=== PATIENT | male | born 1975 | race Caucasian/White ===

== ENCOUNTER 2018-06-29 10:47 | Observation (INO) | payer OTHER ==
[2018-06-29] MEDS ORDERED: Sodium Chloride 0.9% 1,000 ML IV STA (12:00)
[2018-06-29] MEDS ORDERED: Multivitamin (MVI) 10 ML, Thiamine 100 MG, Folic Acid 1 MG in Sodium Chloride 0.9% 1,00... IV STA (12:00)
[2018-06-29 12:12] LABS: BASO # 0.1 K/uL (0.0-0.2); BASO % 0.8 % (0.0-2.0); EOS # 0.1 K/uL (0.0-0.7); EOS % 1.3 % (0.0-4.0); HEMOGLOBIN 18.3 g/dL (12.0-18.0); LYMPH # 1.7 K/uL (1.0-4.3); LYMPH % 20.1 % (20.0-40.0); MEAN CELL VOLUME 95.3 fL (80.0-94.0); MEAN CORPUSCULAR HEMOGLOBIN 32.9 pg (27.0-31.0); MEAN CORPUSCULAR HGB CONC 34.5 g/dL (33.0-37.0); MEAN PLATELET VOLUME 8.2 fL (7.2-11.7); MONO # 0.7 K/uL (0.0-0.8); NEUT % 69.8 % (50.0-75.0); RBC 5.57 Mil/uL (4.40-5.90); RED CELL DISTRIBUTION WIDTH 14.7 % (11.5-14.5); WHITE BLOOD COUNT 8.6 K/uL (4.8-10.8)
[2018-06-29] MEDS ORDERED: Sodium Chloride 0.9% 1,000 ML ONE (12:13)
[2018-06-29 12:27] LABS: ALB/GLOB RATIO 1.5 (1.0-2.1); ALBUMIN 4.5 g/dL (3.5-5.0); ALT/SGPT 55 U/L (21-72); AST/SGOT 63 U/L (17-59); BLOOD UREA NITROGEN 11 mg/dL (9-20); GFR NON-AFRICAN AMERICAN > 60
--- NOTE | 2018-06-29 12:59 | RAD ---
HISTORY: Detox/Psy COMPARISON: None available. TECHNIQUE: Chest, one view. FINDINGS: Examination limited by habitus and hypoinflation. LUNGS: No focal consolidation. 3.9 cm mid lung rounded lucency may reflect artifact from confluence of shadows however bulla or less likely cavitation not excluded. Please note that chest x-ray has limited sensitivity for the detection of pulmonary masses. PLEURA: No significant pleural effusion identified. No definite pneumothorax . CARDIOVASCULAR: Heart size appears top normal. No significant atherosclerotic calcification present. OSSEOUS STRUCTURES: Degenerative changes. VISUALIZED UPPER ABDOMEN: Unremarkable. OTHER FINDINGS: None. IMPRESSION: 3.9 cm mid lung rounded lucency may reflect artifact from confluence of shadows however bulla or less likely cavitation not excluded. CT of the chest may be considered for further evaluation if indicated.
--- NOTE | 2018-06-29 13:34 | C.PDOC ---
History Of Present Illness Patient is a 42 year old male, with a PMHx of alcohol abuse, who presents to the ED c/o nausea, feeling hot and cold, dry mouth, headache, and shaking that began after he stopped drinking yesterday evening. Patient reports that he was in rehab for alcohol abuse and was fine for several years, but has recently had stress and was drinking for the past 6 days. He denies any CP, SOB, SI/HI, or hallucinations. Time Seen by Provider: 06/29/18 11:32 Chief Complaint (Nursing): Substance Abuse History Per: Patient History/Exam Limitations: no limitations Onset/Duration Of Symptoms: Days (1) Current Symptoms Are (Timing): Still Present Suicide/Self Injury Attempted (Context): None Associated Symptoms: denies: Suicidal Thoughts, Suicidal Plan Involuntary Hold By: None Recent travel outside of the [place]: No Additional History Per: Patient Past Medical History Reviewed: Historical Data, Nursing Documentation, Vital Signs Vital Signs: Last Vital Signs Temp 98.4 F 06/29/18 10:50 Pulse 114 H 06/29/18 12:10 Resp 17 06/29/18 12:10 BP 157/91 H 06/29/18 12:10 Pulse Ox 97 06/29/18 12:10 - Medical History PMH: No Chronic Diseases Surgical History: No Surg Hx Family History: States: No Known Family Hx - Social History Hx Alcohol Use: Yes Hx Substance Use: Yes - Immunization History Hx Tetanus Toxoid Vaccination: No Hx Influenza Vaccination: No Hx Pneumococcal Vaccination: No Review Of Systems Except As Marked, All Systems Reviewed And Found Negative. Constitutional: Positive for: Chills, Other (tremors) ENT: Positive for: Other (dry mouth) Cardiovascular: Negative for: Chest Pain Respiratory: Negative for: Shortness of Breath Gastrointestinal: Positive for: Nausea Neurological: Positive for: Headache Psych: Negative for: Suicidal ideation, Other (homicidal ideation, hallucinat ions) Physical Exam - Physical Exam Appears: Non-toxic, Other (tremors) Skin: Normal Color, Warm, Dry Head: Atraumatic, Normacephalic Eye(s): bilateral: Normal Inspection Oral Mucosa: Moist Neck: Normal ROM, Supple Chest: Symmetrical, No Deformity Cardiovascular: Rhythm Irregular (tachycardic) Respiratory: Normal Breath Sounds, No Rales, No Rhonchi, No Wheezing Gastrointestinal/Abdominal: Soft, No Tenderness Neurological/Psych: Oriented x3, Normal Speech, Normal Cognition ED Course And Treatment - Laboratory Results Result Diagrams: 06/29/18 12:09 06/29/18 12:09 Lab Results: Total Bilirubin 0.6 mg/dL (0.2-1.3) 06/29/18 12:09 AST 63 U/L (17-59) H 06/29/18 12:09 ALT 55 U/L (21-72) 06/29/18 12:09 Alkaline Phosphatase 115 U/L (38-126) 06/29/18 12:09 Total Protein 7.6 g/dL (6.3-8.3) 06/29/18 12:09 Albumin 4.5 g/dL (3.5-5.0) 06/29/18 12:09 Globulin 3.1 gm/dL (2.2-3.9) 06/29/18 12:09 Albumin/Globulin Ratio 1.5 (1.0-2.1) 06/29/18 12:09 O2 Sat by Pulse Oximetry: 97 (on RA) Pulse Ox Interpretation: Normal - CT Scan/US CT Chest Other Rad Studies (CT/US): Read By Radiologist, Radiology Report Reviewed CT/US Interpretation: HISTORY: Detox/Psy. COMPARISON: None available. TECHNIQUE: Chest, one view. FINDINGS: Examination limited by habitus and hypoinflation. LUNGS: No focal consolidation. 3.9 cm mid lung rounded lucency may reflect artifact from confluence of shadows however bulla or less likely cavitation not excluded. Please note that chest x-ray has limited sensitivity for the detection of pulmonary masses. PLEURA: No significant pleural effusion identified. No definite pneumothorax . CARDIOVASCULAR: Heart size appears top normal. No significant atherosclerotic calcification present. OSSEOUS STRUCTURES: Degenerative changes. VISUALIZED UPPER ABDOMEN: Unremarkable. OTHER FINDINGS: None. IMPRESSION: 3.9 cm mid lung rounded lucency may reflect artifact from confluence of shadows however bulla or less likely cavitation not excluded. CT of the chest may be considered for further evaluation if indicated. Progress Note: Plan: Labs. CT Chest. O2 Nasal Cannula. Ativan 1mg IVP. Libirum 50mg PO. Protonix 40mg PO. IV Fluids. Banana Bag. Spoke with Crisis Department, no detox beds were available. On reevaluation, patient felt better but was still tachycardic and had tremors. Spoke to Dr. Elida Hightower who accepted patient for observation of alcohol withdrawal. Disposition - Disposition Disposition: HOSPITALIZED Disposition Time: 13:34 Condition: FAIR - Clinical Impression Clinical Impression: Alcohol withdrawal - PA / TIRE CURER / Resident Statement MD/DO has examined the patient and agrees with the treatment plan. - Scribe Statement The provider has reviewed the documentation as recorded by the Justina Barreto All medical record entries made by the Pinedaiblemuel were at my direction and personally dictated by me. I have reviewed the chart and agree that the record accurately reflects my personal performance of the history, physical exam, medical decision making, and the department course for this patient. I have also personally directed, reviewed, and agree with the discharge instructions and disposition. Decision To Admit - Pt Status Changed To: Hospital Disposition Of: Observation - . Bed Request Type: Telemetry Admitting Physician: Debra Hightower Patient Diagnosis: Alcohol withdrawal
[2018-06-29 14:41] LABS: URINE BILIRUBIN NEGATIVE (NEGATIVE); URINE CLARITY Clear (Clear); URINE COLOR YELLOW (YELLOW); URINE GLUCOSE (UA) NEGATIVE (Normal)
[2018-06-29 14:42] LABS: URINE BLOOD NEGATIVE (NEGATIVE); URINE LEUKOCYTE ESTERASE NEGATIVE Leu/uL (Negative); URINE PROTEIN NEGATIVE (NEGATIVE); URINE UROBILINOGEN 0.2 mg/dL (0.2-1.0)
[2018-06-29 14:43] LABS: BARBITURATES, UR NEGATIVE (NEGATIVE); BENZODIAZEPINES, UR NEGATIVE (NEGATIVE); OPIATES, UR NEGATIVE (NEGATIVE); PHENCYCLIDINE, UR NEGATIVE (NEGATIVE)
--- NOTE | 2018-06-29 14:44 | CT ---
Date of service: 06/29/2018 CT chest without IV contrast Indication: abnormal CXR Technique: Contiguous axial images were obtained through the chest without intravenous contrast enhancement. Sagittal and coronal reconstructions were generated and reviewed. This CT exam was performed using 1 or more of the following dose reduction techniques: Automated exposure control, adjustment of the MAA and/or kV according to patient size, and/or use of iterative reconstruction technique. Radiation dose (DLP): 667.8 MGy-cm. Comparison: Chest xray performed 06/29/18 Findings: Visualized portions of the inferior thyroid gland appear unremarkable. The mediastinal and hilar vascular structures appear within normal limits. The heart appears within normal limits of size. No focal consolidation. No pleural effusion. No pneumothorax. No suspicious pulmonary nodules measuring greater than 5 mm. Limited visualization of the noncontrast upper abdomen: Hypoattenuation of the liver compatible with hepatic steatosis. No acute osseous abnormality is detected. Impression: No acute pulmonary pathology identified. The rounded lucency demonstrated on chest x-ray performed the same day is not evident on the current examination and presumed secondary to artifact. Incidental findings as above.
[2018-06-29 18:24] VITALS: RESP 20
--- NOTE | 2018-06-29 18:28 | CP.PCM.PN ---
Subjective - Date & Time of Evaluation Date of Evaluation: 06/29/18 Objective - Vital Signs/Intake and Output Vital Signs (last 24 hours): Temp Pulse Resp BP Pulse Ox 99.2 F 108 H 20 153/87 H 97 06/29/18 15:05 06/29/18 15:05 06/29/18 15:05 06/29/18 15:05 06/29/18 17:33 - Medications Medications: Current Medications Chlordiazepoxide (Librium) 25 mg PO Q8 PRN PRN Reason: Agitation Folic Acid 1 mg/ Thiamine HCl 100 mg/ Multivitamins/Vitamin C 10 ml/ Dextrose 1,011.2 mls @ 75 mls/hr IV Q24H [facility] Pantoprazole Sodium (Protonix Ec Tab) 40 mg PO DAILY [facility] - Labs Labs: 06/29/18 12:09 06/29/18 12:09 - Constitutional Appears: Well - Head Exam Head Exam: ATRAUMATIC, NORMAL INSPECTION, NORMOCEPHALIC - Eye Exam Eye Exam: EOMI, Normal appearance, PERRL Pupil Exam: NORMAL ACCOMODATION, PERRL - ENT Exam ENT Exam: Mucous Membranes Moist, Normal Exam - Neck Exam Neck Exam: Full ROM, Normal Inspection. absent: Lymphadenopathy - Respiratory Exam Respiratory Exam: Decreased Breath Sounds - Cardiovascular Exam Cardiovascular Exam: REGULAR RHYTHM, +S1, +S2 - GI/Abdominal Exam GI & Abdominal Exam: Soft, Diminished Bowel Sounds - Rectal Exam Rectal Exam: Deferred Assessment and Plan - Assessment and Plan (Free Text) Plan: medications reviewed vitals reviewed labs reviewed
--- NOTE | 2018-06-29 18:29 | CP.PCM.HP ---
History of Present Illness - History of Present Illness History of Present Illness: 42 yo M with no known chronic diseases and PMH of ETOH and substance abuse (cocaine) presents to ED for detox s/p drinking for 6 continuous days. Pt presented with c/o nausea, headache, dry mouth, tremors, and feeling of temperature change hot/cold of onset day of arrival to ED. Pt reports last drink was evening [employer]. Pt admits to being in rehab for ETOH abuse and was successful in stopping drinking for several years with recent relapse due to stress. Pt at present still c/o chills, tremors, and headache. Pt denies fever, chest pain, cough, sob, n/v/d, abdominal pain, dysuria, paresthesias. Pt denies any SI/HI ideations. On presentation, pt tachycardic 114 bpm Past Patient History - Past Social History Smoking Status: Heavy Smoker > 10 Cigarettes Daily - PSYCHIATRIC Hx Substance Use: Yes - SURGICAL HISTORY Other/Comment: LYMPH NODE BIOPSY - ANESTHESIA Hx Anesthesia: Yes Hx Anesthesia Reactions: No Meds Allergies/Adverse Reactions: Allergies Allergy/AdvReac Type Severity Reaction Status Date / Time erythromycin base Allergy Verified 06/29/18 10:50 Physical Exam - Constitutional Appears: Well - Head Exam Head Exam: ATRAUMATIC, NORMAL INSPECTION, NORMOCEPHALIC - Eye Exam Eye Exam: EOMI, Normal appearance, PERRL Pupil Exam: NORMAL ACCOMODATION, PERRL - ENT Exam ENT Exam: Mucous Membranes Moist, Normal Exam - Neck Exam Neck exam: Positive for: Normal Inspection - Respiratory Exam Respiratory Exam: Decreased Breath Sounds - Cardiovascular Exam Cardiovascular Exam: REGULAR RHYTHM, +S1, +S2 - GI/Abdominal Exam GI & Abdominal Exam: Diminished Bowel Sounds, Soft - Rectal Exam Rectal Exam: Deferred Results - Vital Signs Recent Vital Signs: Last Vital Signs Temp 99.2 F 06/29/18 15:05 Pulse 108 H 06/29/18 15:05 Resp 20 06/29/18 15:05 BP 153/87 H 06/29/18 15:05 Pulse Ox 97 06/29/18 17:33 - Labs Result Diagrams: 06/29/18 12:09 06/29/18 12:09 Labs: Laboratory Results - last 24 hr 06/29/18 06/29/18 06/29/18 12:09 12:09 14:13 WBC 8.6 RBC 5.57 Hgb 18.3 H Hct 53.1 H MCV 95.3 H MCH 32.9 H MCHC 34.5 RDW 14.7 H Plt Count 237 MPV 8.2 Neut % (Auto) 69.8 Lymph % (Auto) 20.1 [place] % (Auto) 8.0 Eos % (Auto) 1.3 Baso % (Auto) 0.8 Neut # (Auto) 6.0 Lymph # (Auto) 1.7 [place] # (Auto) 0.7 Eos # (Auto) 0.1 Baso # (Auto) 0.1 Sodium 139 Potassium 4.2 Chloride 102 Carbon Dioxide 26 Anion Gap 15 BUN 11 Creatinine 0.9 Est GFR ( Amer) > 60 Est GFR (Non-Af Amer) > 60 Random Glucose 115 H Calcium 9.0 Phosphorus 2.1 L Magnesium 1.8 Total Bilirubin 0.6 AST 63 H ALT 55 Alkaline Phosphatase 115 Total Protein 7.6 Albumin 4.5 Globulin 3.1 Albumin/Globulin Ratio 1.5 Urine Color Yellow Urine Clarity Clear Urine pH 7.0 Ur Specific [place] 1.015 Urine Protein Negative Urine Glucose (UA) Negative Urine Ketones 15 Urine Blood Negative Urine Nitrate Negative Urine Bilirubin Negative Urine Urobilinogen 0.2 Ur Leukocyte Esterase Negative Urine WBC (Auto) 2 Urine RBC (Auto) 1 Urine Opiates Screen Urine Methadone Screen Ur Barbiturates Screen Ur Phencyclidine Scrn Ur Amphetamines Screen U Benzodiazepines Scrn U Oth Cocaine Metabols U Cannabinoids Screen Alcohol, Quantitative 88 H 06/29/18 14:13 WBC RBC Hgb Hct MCV MCH MCHC RDW Plt Count MPV Neut % (Auto) Lymph % (Auto) [place] % (Auto) Eos % (Auto) Baso % (Auto) Neut # (Auto) Lymph # (Auto) [place] # (Auto) Eos # (Auto) Baso # (Auto) Sodium Potassium Chloride Carbon Dioxide Anion Gap BUN Creatinine Est GFR ( Amer) Est GFR (Non-Af Amer) Random Glucose Calcium Phosphorus Magnesium Total Bilirubin AST ALT Alkaline Phosphatase Total Protein Albumin Globulin Albumin/Globulin Ratio Urine Color Urine Clarity Urine pH Ur Specific [place] Urine Protein Urine Glucose (UA) Urine Ketones Urine Blood Urine Nitrate Urine Bilirubin Urine Urobilinogen Ur Leukocyte Esterase Urine WBC (Auto) Urine RBC (Auto) Urine Opiates Screen Negative Urine Methadone Screen Negative Ur Barbiturates Screen Negative Ur Phencyclidine Scrn Negative Ur Amphetamines Screen Negative U Benzodiazepines Scrn Negative U Oth Cocaine Metabols Positive H U Cannabinoids Screen Negative Alcohol, Quantitative Assessment & Plan - Assessment and Plan (Free Text) Plan: Ativan prn Librium 50 mg IVF / Banana Bag PO Protonix monitor for s/s ETOh withdrawal o2 NC support prn AM labs CT Chest
[2018-06-29] MEDS: Dextrose 5%/0.45% NS 1,000 ML IV SCH (22:45)
[2018-06-30] MEDS: Pantoprazole 40 mg EC Tab PO SCH (09:53)
[2018-06-30] MEDS: Enoxaparin 40 mg Syringe SC SCH (09:53)
--- NOTE | 2018-06-30 10:18 | CP.PCM.PN ---
Subjective - Date & Time of Evaluation Date of Evaluation: 06/30/18 Time of Evaluation: 10:18 - Subjective Subjective: Medicine Progress Note - Dr Kaylene Hightower's service Patient seen and examined at bedside. Per nursing no acute events overnight. 42 year old male with a past medical history of etoh abuse and cocaine abuse comes in after reporting falling off the wagon and drinking for six days straight. Patient completed rehab in the past, however recent changes in his personal life caused further stress that caused him to relapse. At this time the patient states he has it under control and doesn't need rehab. Patient denies any fevers, headaches, chills, nausea, vomiting, abdominal pain, syncopal episodes, or any other complaints. Medical history:Denies Surgical history:Denies Allergies: erythromycin base Social history: Daily alcohol user. Previously was sober after completing rehab. Occaisional cocaine use Objective - Vital Signs/Intake and Output Vital Signs (last 24 hours): Temp Pulse Resp BP Pulse Ox 97.4 F L 78 20 137/78 98 06/29/18 23:32 06/30/18 07:07 06/29/18 23:32 06/29/18 23:32 06/30/18 08:07 Intake and Output: 06/30/18 06/30/18 06:59 18:59 Intake Total 1230 Balance 1230 - Medications Medications: Current Medications Chlordiazepoxide (Librium) 25 mg PO Q8 PRN PRN Reason: Agitation Last Admin: 06/30/18 04:27 Dose: 25 mg Enoxaparin Sodium (Lovenox) 40 mg SC DAILY [facility] Last Admin: 06/30/18 09:53 Dose: 40 mg Folic Acid 1 mg/ Thiamine HCl 100 mg/ Multivitamins/Vitamin C 10 ml/ Dextrose 1,011.2 mls @ 75 mls/hr IV Q24H [facility] Dextrose/Sodium Chloride (Dextrose 5%/0.45% Ns 1000 Ml) 1,000 mls @ 75 mls/hr IV .[id number] [facility] Last Admin: 06/29/18 22:45 Dose: 75 mls/hr Pantoprazole Sodium (Protonix Ec Tab) 40 mg PO DAILY [facility] Last Admin: 06/30/18 09:53 Dose: 40 mg - Labs Labs: 06/29/18 12:09 06/29/18 12:09 - Head Exam Head Exam: ATRAUMATIC, NORMAL INSPECTION - Eye Exam Eye Exam: EOMI, Normal appearance, PERRL Pupil Exam: NORMAL ACCOMODATION, PERRL. absent: Irregular, Unequal - ENT Exam ENT Exam: Mucous Membranes Moist, Normal Oropharynx - Respiratory Exam Respiratory Exam: Clear to Ausculation Bilateral, NORMAL BREATHING PATTERN. absent: Prolonged Expiratory Phase, Respiratory Distress - Cardiovascular Exam Cardiovascular Exam: REGULAR RHYTHM, +S1, +S2 - GI/Abdominal Exam GI & Abdominal Exam: Soft, Normal Bowel Sounds. absent: Rigid, Hyperactive Bowel Sounds - Extremities Exam Extremities Exam: Full ROM, Normal Inspection. absent: Joint Swelling, Pedal Edema - Back Exam Back Exam: NORMAL INSPECTION. absent: CVA tenderness (R), paraspinal tenderness - Neurological Exam Neurological Exam: Alert, Awake, CN II-XII Intact, Oriented x3 - Psychiatric Exam Psychiatric exam: Normal Affect, Normal Mood. absent: Depressed - Skin Skin Exam: Dry, Intact, Normal Color Assessment and Plan - Assessment and Plan (Free Text) Assessment: 42 year old male admitted to the hospital for alcohol abuse. Plan: Etoh withdrawal [place]: 88 on admission Banana bag given. [facility] protocols Fall protocols Seizure protocols. Psychiatry consulted--> Help appreciated Medications: Librium 25mg PO Q8 PRN Dextrose 5%/.5%NS @75mls/hr Folic acid 1mg IV Q24 Cocaine abuse -UDS positive for coacaine on admission -Avoid beta blockers in patient Tobacco use -Nicoderm patch PPX -Lovenox -Protonix Dispo: Patient likely to be discharged tomorow. Plan discussed with Attending Dr. Elida Hightower. Andrey Stringer, PGY-2
[2018-06-30] MEDS: Dextrose 5%/0.45% NS 1,000 ML IV SCH (12:23)
[2018-06-30] MEDS ORDERED: Folic Acid 1 MG, Thiamine 100 MG, Multivitamin (MVI) 10 ML in Dextrose 5% In Water 1,00... IV SCH (16:00)
--- NOTE | 2018-06-30 18:12 | CP.PCM.PN ---
Subjective - Date & Time of Evaluation Date of Evaluation: 06/30/18 - Subjective Subjective: patient seen and examined at bedside no acute overnight events reported states feeling much better today no c/o n/v/d, abdominal pain, sob, chest pain Patient seen and examined at bedside. Per nursing no acute events overnight. 42 year old male with a past medical history of etoh abuse and cocaine abuse comes in after reporting falling off the wagon and drinking for six days straight. Patient completed rehab in the past, however recent changes in his personal life caused further stress that caused him to relapse. At this time the patient states he has it under control and doesn't need rehab. Patient denies any fevers, headaches, chills, nausea, vomiting, abdominal pain, syncopal episodes, or any other complaints. Medical history:Denies Surgical history:Denies Allergies: erythromycin base Social history: Daily alcohol user. Previously was sober after completing rehab. Occaisional cocaine use Objective - Vital Signs/Intake and Output Vital Signs (last 24 hours): Temp Pulse Resp BP Pulse Ox 97.4 F L 84 20 137/78 98 06/29/18 23:32 06/30/18 13:53 06/29/18 23:32 06/29/18 23:32 06/30/18 12:12 Intake and Output: 06/30/18 06/30/18 06:59 18:59 Intake Total 1230 Balance 1230 - Medications Medications: Current Medications Chlordiazepoxide (Librium) 25 mg PO Q8 PRN PRN Reason: Agitation Last Admin: 06/30/18 13:51 Dose: 25 mg Enoxaparin Sodium (Lovenox) 40 mg SC DAILY [facility] Last Admin: 06/30/18 09:53 Dose: 40 mg Folic Acid 1 mg/ Thiamine HCl 100 mg/ Multivitamins/Vitamin C 10 ml/ Dextrose 1,011.2 mls @ 75 mls/hr IV Q24H [facility] Last Admin: 06/30/18 16:51 Dose: 75 mls/hr Dextrose/Sodium Chloride (Dextrose 5%/0.45% Ns 1000 Ml) 1,000 mls @ 75 mls/hr IV .[id number] [facility] Last Admin: 06/30/18 12:23 Dose: 75 mls/hr Nicotine (Nicoderm Cq) 1 patch TD DAILY [facility] Last Admin: 06/30/18 16:45 Dose: 1 patch Pantoprazole Sodium (Protonix Ec Tab) 40 mg PO DAILY [facility] Last Admin: 06/30/18 09:53 Dose: 40 mg - Labs Labs: 06/29/18 12:09 06/29/18 12:09 - Constitutional Appears: Well - Head Exam Head Exam: ATRAUMATIC, NORMAL INSPECTION, NORMOCEPHALIC - Eye Exam Eye Exam: EOMI, Normal appearance, PERRL Pupil Exam: NORMAL ACCOMODATION, PERRL - ENT Exam ENT Exam: Mucous Membranes Moist, Normal Exam - Neck Exam Neck Exam: Full ROM, Normal Inspection. absent: Lymphadenopathy - Respiratory Exam Respiratory Exam: Decreased Breath Sounds - Cardiovascular Exam Cardiovascular Exam: REGULAR RHYTHM, +S1, +S2 - GI/Abdominal Exam GI & Abdominal Exam: Soft, Diminished Bowel Sounds - Rectal Exam Rectal Exam: Deferred - Neurological Exam Neurological Exam: Oriented x3 Assessment and Plan - Assessment and Plan (Free Text) Plan: Dextrose 5% Folic acid 1 mgthiamine HCL 100 mg Librium Lovenox NicoDerm CQ Protonix ec tab Medications reviewed Labs reviewed Vitals reviewed
[2018-07-01] MEDS: Dextrose 5%/0.45% NS 1,000 ML IV SCH (01:25)
[2018-07-01 01:31] VITALS: TEMP 98.1
[2018-07-01 08:17] VITALS: PULSE 89
[2018-07-01 08:37] VITALS: BP 115/78; O2SAT 97
[2018-07-01] MEDS: Pantoprazole 40 mg EC Tab PO SCH (09:33)
[2018-07-01] MEDS: Enoxaparin 40 mg Syringe SC SCH (09:35)
--- NOTE | 2018-07-01 18:52 | CP.PCM.DIS ---
Provider - Provider Date of Admission: 06/29/18 13:32 Attending physician: Jose Luis Hightower MD Time Spent in preparation of Discharge (in minutes): 15 Hospital Course - Lab Results Lab Results: Most Recent Lab Values WBC 8.6 K/uL (4.8-10.8) 06/29/18 12:09 RBC 5.57 Mil/uL (4.40-5.90) 06/29/18 12:09 Hgb 18.3 g/dL (12.0-18.0) H 06/29/18 12:09 Hct 53.1 % (35.0-51.0) H 06/29/18 12:09 MCV 95.3 fL (80.0-94.0) H 06/29/18 12:09 MCH 32.9 pg (27.0-31.0) H 06/29/18 12:09 MCHC 34.5 g/dL (33.0-37.0) 06/29/18 12:09 RDW 14.7 % (11.5-14.5) H 06/29/18 12:09 Plt Count 237 K/uL (130-400) 06/29/18 12:09 MPV 8.2 fL (7.2-11.7) 06/29/18 12:09 Neut % (Auto) 69.8 % (50.0-75.0) 06/29/18 12:09 Lymph % (Auto) 20.1 % (20.0-40.0) 06/29/18 12:09 [place] % (Auto) 8.0 % (0.0-10.0) 06/29/18 12:09 Eos % (Auto) 1.3 % (0.0-4.0) 06/29/18 12:09 Baso % (Auto) 0.8 % (0.0-2.0) 06/29/18 12:09 Neut # (Auto) 6.0 K/uL (1.8-7.0) 06/29/18 12:09 Lymph # (Auto) 1.7 K/uL (1.0-4.3) 06/29/18 12:09 [place] # (Auto) 0.7 K/uL (0.0-0.8) 06/29/18 12:09 Eos # (Auto) 0.1 K/uL (0.0-0.7) 06/29/18 12:09 Baso # (Auto) 0.1 K/uL (0.0-0.2) 06/29/18 12:09 Sodium 139 mmol/L (132-148) 06/29/18 12:09 Potassium 4.2 mmol/L (3.6-5.2) 06/29/18 12:09 Chloride 102 mmol/L (98-107) 06/29/18 12:09 Carbon Dioxide 26 mmol/L (22-30) 06/29/18 12:09 Anion Gap 15 (10-20) 06/29/18 12:09 BUN 11 mg/dL (9-20) 06/29/18 12:09 Creatinine 0.9 mg/dL (0.8-1.5) 06/29/18 12:09 Est GFR ( Amer) > 60 06/29/18 12:09 Est GFR (Non-Af Amer) > 60 06/29/18 12:09 Random Glucose 115 mg/dL (75-110) H 06/29/18 12:09 Calcium 9.0 mg/dl (8.6-10.4) 06/29/18 12:09 Phosphorus 2.1 mg/dL (2.5-4.5) L 06/29/18 12:09 Magnesium 1.8 mg/dL (1.6-2.3) 06/29/18 12:09 Total Bilirubin 0.6 mg/dL (0.2-1.3) 06/29/18 12:09 AST 63 U/L (17-59) H 06/29/18 12:09 ALT 55 U/L (21-72) 06/29/18 12:09 Alkaline Phosphatase 115 U/L (38-126) 06/29/18 12:09 Total Protein 7.6 g/dL (6.3-8.3) 06/29/18 12:09 Albumin 4.5 g/dL (3.5-5.0) 06/29/18 12:09 Globulin 3.1 gm/dL (2.2-3.9) 06/29/18 12:09 Albumin/Globulin Ratio 1.5 (1.0-2.1) 06/29/18 12:09 Urine Color Yellow (YELLOW) 06/29/18 14:13 Urine Clarity Clear (Clear) 06/29/18 14:13 Urine pH 7.0 (5.0-8.0) 06/29/18 14:13 Ur Specific [place] 1.015 (1.003-1.030) 06/29/18 14:13 Urine Protein Negative mg/dL (NEGATIVE) 06/29/18 14:13 Urine Glucose (UA) Negative mg/dL (Normal) 06/29/18 14:13 Urine Ketones 15 mg/dL (NEGATIVE) 06/29/18 14:13 Urine Blood Negative (NEGATIVE) 06/29/18 14:13 Urine Nitrate Negative (NEGATIVE) 06/29/18 14:13 Urine Bilirubin Negative (NEGATIVE) 06/29/18 14:13 Urine Urobilinogen 0.2 mg/dL (0.2-1.0) 06/29/18 14:13 Ur Leukocyte Esterase Negative Rajiv/uL (Negative) 06/29/18 14:13 Urine WBC (Auto) 2 /hpf (0-5) 06/29/18 14:13 Urine RBC (Auto) 1 /hpf (0-3) 06/29/18 14:13 Urine Opiates Screen Negative (NEGATIVE) 06/29/18 14:13 Urine Methadone Screen Negative (NEGATIVE) 06/29/18 14:13 Ur Barbiturates Screen Negative (NEGATIVE) 06/29/18 14:13 Ur Phencyclidine Scrn Negative (NEGATIVE) 06/29/18 14:13 Ur Amphetamines Screen Negative (NEGATIVE) 06/29/18 14:13 U Benzodiazepines Scrn Negative (NEGATIVE) 06/29/18 14:13 U Oth Cocaine Metabols Positive (NEGATIVE) H 06/29/18 14:13 U Cannabinoids Screen Negative (NEGATIVE) 06/29/18 14:13 Alcohol, Quantitative 88 mg/dl (0-10) H 06/29/18 12:09 - Hospital Course Hospital Course: pt cliams he soldhouse 7 days ago pt is drinking toomuch pt [place] top using alco and also cocaine pt is moving [facility] adn decided to sign ama as he feelsbetter Etoh withdrawal [place]: 88 on admission Banana bag given. CIWA protocols Fall protocols Seizure protocols. Psychiatry consulted--> Help appreciated Medications: Librium 25mg PO Q8 PRN Dextrose 5%/.5%NS @75mls/hr Folic acid 1mg IV Q24 Cocaine abuse -UDS positive for coacaine on admission -Avoid beta blockers in patient Tobacco use -Nicoderm patch PPX -Lovenox -Protonix Discharge Exam - Head Exam Head Exam: ATRAUMATIC, NORMAL INSPECTION, NORMOCEPHALIC - Eye Exam Eye Exam: EOMI, Normal appearance, PERRL Pupil Exam: NORMAL ACCOMODATION, PERRL - Respiratory Exam Respiratory Exam: Decreased Breath Sounds - Cardiovascular Exam Cardiovascular Exam: REGULAR RHYTHM, +S1, +S2 - GI/Abdominal Exam GI & Abdominal Exam: Diminished Bowel Sounds, Soft - Rectal Exam Rectal Exam: Deferred - Neurological Exam Neurological exam: Oriented x3 Discharge Plan - Follow Up Plan Condition: FAIR Disposition: AGAINST MEDICAL ADVICE
== END 2018-07-01 13:35 | disposition left against medical advice (07) ==
LOC: C.ER 10:47 → C.9E 13:32 → C.6T 14:29
PROVIDERS: ADMIT Internal Medicine Nephrology; ATTEND Internal Medicine Nephrology
DX: F10.239 Alcohol dependence with withdrawal, unspecified (principal); F17.210 Nicotine dependence, cigarettes, uncomplicated; F14.10 Cocaine abuse, uncomplicated
CPT/HCPCS: 71045; 71250; 80053; 80320; 80324; 80345; 80346; 80349; 80353; 80358; 80361; 81001; 83735; 83992; 84100; 85025; 96361; 96365; 96366; 96372; 96375; 96376; 99285; G0378; J1650; J2060; J3411; J7030; J7042; J7070